=== PATIENT | male | born 1980 | race Caucasian/White ===

== ENCOUNTER 2017-02-15 06:30 | Emergency (ER) | payer SELFPAY ==
[~2017-02-15] VITALS: Ht 170.2 cm; Wt 81.6 kg
[2017-02-15 06:32] VITALS: BP 116/61
--- NOTE | 2017-02-15 06:52 | NUR ---
Pt placed in bed 5.
--- NOTE | 2017-02-15 06:55 | NUR ---
36/M c/o right great toe pain since yesterday. Pt states he was at work when he smashed his foot on a forklift. Pt states he went to an clinic yesterday and x-ray were done. Pt explains that the clinic told him he had a fracture and had to follow up at a hospital and was going to need surgery. Pt has a dressing on right great toe. Patient states "I just came here." Pt was not referred here by clinic. Pt arrived with referral noted and x-ray report. AOX4, faroese speaking. VSS.
--- NOTE | 2017-02-15 07:07 | NUR ---
Pt report given to Kelley FRANK. Transfer of care at this time.
[2017-02-15] MEDS ORDERED: HYDROcodone/APAP 5/325 MG 1 TAB TAB PO ONE (07:15)
[2017-02-15] MEDS ORDERED: NAPROXEN 500 MG TAB PO ONE (08:10)
[2017-02-15 08:57] VITALS: BP 128/77
== END 2017-02-15 08:58 | disposition home or self-care (01) ==
LOC: MED 06:30
DX: S92.424A Nondisplaced fracture of distal phalanx of right great toe, initial encounter for closed fracture (principal); W04.XXXA Fall while being carried or supported by other persons, initial encounter; Y93.89 Activity, other specified; Y92.838 Other recreation area as the place of occurrence of the external cause; Y99.0 Civilian activity done for income or pay
CPT/HCPCS: 73630; 99284